=== PATIENT | male | born 1995 | race Caucasian/White ===

== ENCOUNTER 2018-12-05 14:42 | Emergency (ER) | payer OTHER ==
[2018-12-05 14:49] VITALS: BP 136/82
--- NOTE | 2018-12-05 15:05 | EDPHY ---
H & P Stated Complaint: injured right pinky and index finger trying to catch football Source: Patient Exam Limitations: No limitations - Personal History Current Tetanus Diphtheria and Acellular Pertussis (TDAP): Yes - Medical/Surgical History Hx Asthma: No Hx Chronic Respiratory Disease: No Hx Diabetes: No Hx Cardiac Disease: No Hx Renal Disease: No Hx Cirrhosis: No Hx Alcoholism: No Hx HIV/AIDS: No Hx Splenectomy or Spleen Trauma: No - Social History Smoking Status: Never smoked Time Seen by Provider: 12/05/18 15:05 HPI/ROS: HPI: This is a 23-year-old male who presents with Chief Complaint: injured right pinky and index finger trying to catch football Location: Right little and index finger Quality: Injury Duration: Prior to arrival Signs and Symptoms: No bleeding, no radiation, no numbness, no weakness, no tingling, no incontinence, + decreased range of motion, no swelling, + pain, no fever Timing: Acute Severity: Moderate Context: Patient is right-hand dominant, presents with injury and deformity of his right pinky and index finger when he attempted to catch a football. He reports that he felt immediate, constant, and nonradiating pain with decreased range of motion of his index and little finger. Complains of moderate pain worsened with touching the area. Modifying Factors: No [id number] medications or ice pack applied Comment: ROS: A comprehensive 10 system review of systems is otherwise negative aside from elements mentioned in the history of present illness. MEDICAL/SURGICAL/SOCIAL HISTORY: Medical history: Generally healthy. Does not take any regular medications. Surgical history: Denies Social history: Student at [employer]. Never smoked. Admits to marijuana and alcohol use. CONSTITUTIONAL: Well-developed, well-nourished, polite and cooperative young adult white male, awake and alert, no obvious distress HEENT: Atraumatic and normocephalic, PERRL, EOMI. Nares patent; no rhinorrhea; no nasal mucosal edema. Tympanic membranes clear. Oropharynx clear, no exudate and moist pink mucosa. Airway patent. No lymphadenopathy. No meningismus. Cardiovascular: Normal S1/S2, regular rate, regular rhythm, without murmur rub or gallop. PULMONARY/CHEST: Symmetrical and nontender. Clear to auscultation bilaterally. Good air movement. No accessory muscle usage. ABDOMEN: Soft, nondistended, nontender, no rebound, no guarding, no peritoneal signs, no masses or organomegaly. No CVAT. EXTREMITIES: 2/2 radial pulses, strength 5/5, right index finger and little finger at the PIP joint shows deformity; with decreased range of motion. no clubbing, no cyanosis or edema. NEUROLOGICAL: no focal neuro deficits. GCS 15. SKIN: Warm and dry, no erythema. no rash. Good capillary refill. (Yanique Salazar) Constitutional: Initial Vital Signs Temperature (C) 37 C 12/05/18 14:46 Heart Rate 90 12/05/18 14:46 Respiratory Rate 16 12/05/18 14:46 Blood Pressure 136/82 H 12/05/18 14:46 O2 Sat (%) 96 12/05/18 14:46 O2 Delivery Mode Room Air Allergies/Adverse Reactions: No Known Allergies Allergy (Unverified 12/05/18 14:46) Home Medications: Medication Instructions Recorded NK [No Known Home Meds] 12/05/18 Medical Decision Making Procedures: Procedure: Dislocation reduction. The dislocation of the right index finger was reduced using counter traction technique without complications. Post reduction the patient's neurovascular exam is normal. Post reduction x-ray demonstrates reduction of the joint to the anatomic position. The procedure was performed by myself. Procedure: Dislocation reduction. The dislocation of the right little finger was reduced using counter technique without complications. Post reduction the patient's neurovascular exam is normal. Post reduction x-ray demonstrates reduction of the joint to the anatomic position. The procedure was performed by myself. Procedure: Splint placement. The 2 fingers were alex-taped. After application of the splint I returned and re-examined the patient. The splint was adequately immobilizing the joint and distal to the splint the patient's circulation and sensation was intact. (Yanique Salazar) ED Course/Re-evaluation: Vital signs reviewed and stable upon arrival. Right hand x-ray shows dislocation at the PIP of the right index finger and right little finger. Given Percocet x1 with adequate pain relief Excessively reduced with 1st attempt Repeat x-ray shows normal anatomic alignment with Nondisplaced fracture at the dorsal base of the middle phalanx fourth finger. Alex-taped with orthopedic hand follow-up as needed No signs of neurovascular compromise/tenting of skin/compartment syndrome/ extremities and joints examined above and below area of concern and are neurovascularly intact. This patient was seen under the supervision of my secondary supervising physician. I evaluated and cared for this patient independently. (Yanique Salazar) The patient was evaluated and managed by the physician assistant therapy aide. I have reviewed this chart and I agree with the findings and plan of care as documented , as indicated by my signature. I am the secondary supervising physician. ( Luz Patel) Differential Diagnosis: ED differential diagnosis includes dislocation, nerve injury, tendon injury, tendon rupture, phalanx fracture. (Yanique Salazar) - Data Points Medications Given: Discontinued Medications Oxycodone/Acetaminophen (Percocet 5/325) 1 tab PO EDNOW ONE Stop: 12/05/18 15:38 Last Admin: 12/05/18 15:38 Dose: 1 tab Departure - Departure Disposition: Home, Routine, Self-Care Clinical Impression: Dislocation of right little finger, Dislocation of right ring finger, Closed fracture of phalanx of ring finger Condition: Good Instructions: Finger Fracture (ED), Finger Dislocation (ED) Additional Instructions: Keep the alex-taped dry and in place for 48 hours. After 48 hours, you may remove the alex-tape. Take Tylenol 650 mg every 4 hours and/or Ibuprofen 600 mg every 8 hours with food as needed for pain. Follow up with Orthopedics in 7-10 days if symptoms persist at which time they will evaluate and recommend with you if conservative management versus further imaging is indicated. Return to the ER immediately if you experience new or worsening pain, discoloration, numbness, tingling, or any other symptoms that concern you. Referrals: Fly Cage MD [Medical Doctor] - As per Instructions
[2018-12-05] MEDS ORDERED: OXYCODONE/APAP 5/325 TAB ONE (15:19)
[2018-12-05] MEDS ORDERED: OXYCODONE/APAP 5/325 TAB PO ONE (15:37)
== END 2018-12-05 15:46 | disposition home or self-care (01) ==
PROC: 0RSWXZZ Reposition Right Finger Phalangeal Joint, External Approach (ICD-10-PCS; principal; 2018-12-05)
DX: S63.250A Unspecified dislocation of right index finger, initial encounter (principal); W21.01XA Struck by football, initial encounter; Y93.61 Activity, american tackle football
CPT/HCPCS: L3925